=== PATIENT | female | born 1965 | race American Indian/Alaskan Native ===

== ENCOUNTER 2016-02-22 09:10 | Outpatient (CLI) | payer BC ==
--- NOTE | 2016-02-22 10:05 | Mammography Report ---
BONE DEXA:02/22/16 09:10:00 CLINICAL: Vitamin D deficiency. TECHNIQUE: Two site bone DEXA performed on an Hologic scanner. FINDINGS: The average BMD of the lumbar spine L1-L4 is 1.081g/cm squared with a T-score of -0.6 and a Z-score of +0.2. The average BMD of the left hip is 1.000g/cm squared with a T-score of -0.2 and a Z-score of +0.1. IMPRESSION: 1. WHO classification: Normal with average fracture risk based on lumbar spine measurements. 2. WHO classification: Osteopenia with increased fracture risk based on left hip measurements. RECOMMENDATION: Clinical correlation and routine screening. DEFINITIONS: BMD = Bone Mineral Density T-score = BMD related to mean peak bone mass of young adult (mean expressed in Standard Deviation) Z-score = Age matched BMD expressed in SD World Health Organization (WHO) Diagnostic Criteria Normal T-score > -1 SD Osteopenia T-score between -1 and -2.4 SD Osteoporosis T-score -2.5 SD or below NOTE: BMD is not the only risk factor for fracture. One should also consider factors such as the patient's age, risk of falling, previous osteoporotic fracture, family history of osteoporotic fractures, current smoker, and low body weight. Z-scores are not calculated if >80 years of age.
== END 2016-02-22 09:11 | disposition home or self-care (01) ==
LOC: SPVWC 09:10
PROVIDERS: ATTEND Internal Medicine Hematology & Oncology
DX: M85.88 Other specified disorders of bone density and structure, other site (principal); E55.9 Vitamin D deficiency, unspecified
CPT/HCPCS: 77080

== ENCOUNTER 2016-06-05 09:40 | Outpatient (CLI) | payer BC ==
--- NOTE | 2016-06-05 15:22 | Mammography Report ---
BILATERAL DIGITAL SCREENING MAMMOGRAM with CAD: 06/05/16 09:40:00 CLINICAL: Routine screening. COMPARISON:05/31/15 FINDINGS: The breasts are heterogeneously dense, which may obscure small masses. No mass, architectural distortion or suspicious calcifications. IMPRESSION: No mammographic evidence of malignancy. BI-RADS CATEGORY: 1 - - Negative RECOMMENDATION: Routine mammographic screening in one year. COMMENT: Patient follow-up letters are generated by our [employer] application.
== END 2016-06-05 09:41 | disposition home or self-care (01) ==
LOC: SPVWC 09:40
PROVIDERS: ATTEND Obstetrics & Gynecology
DX: Z12.31 Encounter for screening mammogram for malignant neoplasm of breast (principal)
CPT/HCPCS: 77067; G0202

== ENCOUNTER 2016-07-05 07:04 | Emergency (ER) | payer BC ==
--- NOTE | 2016-07-05 08:46 | Emergency Department Report ---
Abscess Boil HPI - HPI Chief Complaint: Skin/Abscess/Foreign Body Stated Complaint: SWELLING IN NOSE Time Seen by Provider: 07/05/16 08:45 Duration: Today Location: Other (face at right nasal area) Severity: Mild (3/10) History: Yes Pain, Yes Insect Bite (reports that she has been by an insect but doesn't know what kind), No Fever, No Purulent Drainage, No Numbness, No Foreign Body, No Previous History HPI: Patient here this morning reporting that she has right side nasal swelling and pain at 3 out of 10. She said she noticed that this morning and believes that she was bitten by an insect. Denies any fever or chills. Denies any trauma to area. Patient with history of high blood pressure but has not taken her medication. She is asymptomatic. Tetanus vaccine is greater than 5 years Home Medications: Previous Rx's Medication Instructions Recorded Last Taken Type Potassium Chloride [K-Dur] 20 meq PO QDAY #7 tablet 08/23/13 Unknown Rx Sulfamethoxazole/Trimethoprim 1 each PO BID #20 tablet 07/05/16 Unknown Rx [Bactrim DS TAB] Allergies/Adverse Reactions: Allergies Allergy/AdvReac Type Severity Reaction Status Date / Time Penicillins Allergy Hives Verified 08/23/13 18:39 ED Review of Systems ROS: Stated complaint: SWELLING IN NOSE Other details as noted in HPI Comment: All other systems reviewed and negative Constitutional: denies: chills, fever Eyes: denies: vision change ENT: denies: throat pain Respiratory: no symptoms reported Cardiovascular: denies: chest pain, palpitations, edema, syncope Gastrointestinal: denies: nausea, vomiting Musculoskeletal: denies: back pain, joint swelling, arthralgia Skin: rash, other (redness and swelling to right nasal area) Neurological: denies: headache, weakness, numbness, paresthesias, confusion, abnormal gait, vertigo ED Past Medical Hx - Past Medical History Previous Medical History?: Yes Hx Hypertension: Yes - Surgical History Past Surgical History?: Yes Additional Surgical History: fibroids excision - Family History Family history: hypertension - Social History Smoking Status: Never Smoker Substance Use Type: Alcohol - Medications Home Medications: Home Medications Medication Instructions Recorded Confirmed Last Taken Type Potassium Chloride [K-Dur] 20 meq PO QDAY #7 tablet 08/23/13 Unknown Rx Sulfamethoxazole/Trimethoprim 1 each PO BID #20 tablet 07/05/16 Unknown Rx [Bactrim DS TAB] ED Abscess Boil Physical Exam - Exam General: Vital signs noted. No distress. Alert and acting appropriately. 50-year-old female well-nourished well-developed in no acute distress. Front/Back of Body, Lg (Color): 1 - Rt Nasal area with erythema, minimal induration and tender to palpate. No fluctuance. Small entrance wound noted to Center. Size: 1 cm (0.25 cm) Exam: Yes Tenderness (palpate), Yes Surrounding Cellulites/Erythema, Yes Normal Neurologic Exam, Yes Normal Circulation, No Fluctuance, No Lymphangitis, No Crepitation, No Heart Murmur (S1-S2 regular rhythm negative murmur) Exam: Head: Normocephalic atraumatic. Neck: Supple, nontender to palpate and full range of motion. No adenopathy. Nose: Nasal turbinates without any polyp or foreign body. Normal mucosa without any drainage. Tender to palpate to right exterior nasal area. Erythema. Mouth: No pharyngeal exudate or erythema , tongue is normal, moist and uvula is midline. Extremity: Clubbing, cyanosis or edema. +2 pulses. Psych: Normal mood and behavior I & D Note - I & D Note I & D Note: Patient with cellulitic minor abscess to right nasal area. Reports it's from insect bite. Minimal induration without any fluctuance. Area does not need to be drained because it is minimally indurated, .25 cm and non- fluctuant with surrounding cellulitis. Tetanus vaccine given ED Course Vital Signs 07/05/16 07:50 Temperature 98.5 F Pulse Rate 85 Respiratory 16 Rate Blood Pressure 160/114 O2 Sat by Pulse 99 Oximetry Vital Signs 07/05/16 07/05/16 07:50 09:18 Temperature 98.5 F Pulse Rate 85 Respiratory 16 Rate Blood Pressure 160/114 Blood Pressure 144/90 [Left] O2 Sat by Pulse 99 Oximetry - Reevaluation(s) Reevaluation #1: 07/05/16 09:19 Patient stable throughout ED course. BP stabilized. Critical care attestation.: If time is entered above; I have spent that time in minutes in the direct care of this critically ill patient, excluding procedure time. ED Medical Decision Making - Medical Decision Making ED course: Status post insect bite with minor abscess and cellulitis. Patient blood pressure was also elevated in emergency room with history of high blood pressure. I discussed with her that she needs to follow-up with a primary care asked to keep a log of her blood pressure over the weekend for evaluation. Patient given tetanus vaccine in emergency room. I instructed her to apply warm compresses to affected site. 5 times a day and keep area clean and dry. Her care physician so I instructed her to follow-up in 3 days. Patient voiced understanding of discharge instruction and discharged home with prescription for Keflex. ED Disposition Clinical Impression: Elevated blood pressure reading with diagnosis of hypertension, Abscess or cellulitis of nose, external Insect bite Qualifiers: Encounter type: initial encounter Qualified Code(s): W57.XXXA - Bitten or stung by nonvenomous insect and other nonvenomous arthropods, initial encounter Disposition: DISCHARGED TO HOME OR SELFCARE Is pt being admited?: No Does the pt Need Aspirin: No Condition: Stable Instructions: Hypertension (ED), Cellulitis (ED), Abscess (ED), Insect Bite or Sting (ED) Additional Instructions: Please warm compresses to affected area 3-4 times a day Keep a log a few blood pressure over the weekend in and bring primary care visits on Friday. Take antibiotic as prescribed. Keep affected area clean and dry Prescriptions: Sulfamethoxazole/Trimethoprim [Bactrim DS TAB] 1 each PO BID #20 tablet Referrals: GEORGETTE DUNBAR MD [Primary Care Provider] - 07/08/16 Forms: Work/School Release Form(ED), Accompanied Note
[2016-07-05] MEDS ORDERED: BOOSTRIX IM ONE (08:47)
[2016-07-05 09:18] VITALS: BP 144/90
== END 2016-07-05 09:33 | disposition home or self-care (01) ==
LOC: ED 07:04
DX: S00.36XA Insect bite (nonvenomous) of nose, initial encounter (principal); J34.0 Abscess, furuncle and carbuncle of nose; I10 Essential (primary) hypertension; Z88.0 Allergy status to penicillin; W57.XXXA Bitten or stung by nonvenomous insect and other nonvenomous arthropods, initial encounter; Y93.89 Activity, other specified; Y99.8 Other external cause status; Y92.89 Other specified places as the place of occurrence of the external cause
CPT/HCPCS: 90471; 90715